=== PATIENT | female | born 1975 | race Caucasian/White ===

== ENCOUNTER 2017-09-15 17:25 | Emergency (ER) | payer SELFPAY ==
[~2017-09-15] VITALS: Ht 167.6 cm; Wt 99.8 kg
[2017-09-15 17:35] VITALS: BP_SYST 139
[2017-09-15] MEDS ORDERED: HYDROcodone/ACETAMIN 5-325 MG TAB (NORCO/ VICODIN) PO ONE (18:30)
[2017-09-15 19:18] VITALS: BP_SYST 141
== END 2017-09-15 19:18 | disposition home or self-care (01) ==
LOC: SED 17:25
DX: S66.912A Strain of unspecified muscle, fascia and tendon at wrist and hand level, left hand, initial encounter (principal); R03.0 Elevated blood-pressure reading, without diagnosis of hypertension; Z88.1 Allergy status to other antibiotic agents; Z90.710 Acquired absence of both cervix and uterus; W19.XXXA Unspecified fall, initial encounter; Y93.89 Activity, other specified; Y92.830 Public park as the place of occurrence of the external cause; Y99.8 Other external cause status
CPT/HCPCS: 99284

== ENCOUNTER 2019-02-16 19:58 | Emergency (ER) | payer SELFPAY ==
[~2019-02-16] VITALS: Ht 167.6 cm; Wt 104.3 kg
[2019-02-16 20:05] VITALS: BP_SYST 162
--- NOTE | 2019-02-16 20:05 | NUR ---
Placed in room 2. Placed on library monitor, blood pressure machine and pulse oximeter. To gown for exam. Side rails up.
--- NOTE | 2019-02-16 20:10 | NUR ---
ER Dr. Ceron at bedside examining patient.
--- NOTE | 2019-02-16 20:14 | NUR ---
Pt presents to ER with with c/o chest pain and right sided congestion and cough. Pt states she received bad news about her son approximately an hour ago and immediately got SOB, increased heart rate, dry mouth, and chest tightness. Pt states pain was located in left chest and radiated to left shoulder to left shoulder blade. Pt states pain in chest was 5/10. Pt states no nausea and vomiting were or are present. Upon assessment, Pt states she is not SOB, has no chest tightness or pain and HR is currently 91 beats per minute. Pt states right sided face congestion and cough presented around Thanksgiving. Pt describes "when I cough, I cough up like blood because it's pink." Upon assessment, Pt lungs sound bilaterally clear and no labored breathing noted. Will continue to monitor.
[2019-02-16] MEDS ORDERED: MELA10TA2 PO (20:18)
[2019-02-16] MEDS ORDERED: ASPIRIN 81 MG TAB.CHEW PO ONE (20:30)
[2019-02-16 20:35] LABS: BASOPHILS # (AUTO) 0.1 K/uL (0.0-0.2); BASOPHILS % (AUTO) 0.9 % (0.0-2.0); EOSINOPHILS # (AUTO) 0.2 K/uL (0.0-0.4); EOSINOPHILS % (AUTO) 2.8 % (0.0-4.0); HEMATOCRIT 38.1 % (36-48); HEMOGLOBIN 13.1 g/dL (12.0-16.0); LYMPHOCYTES # (AUTO) 1.5 K/uL (1.0-5.5); LYMPHOCYTES % (AUTO) 18.3 % (20.5-51.5); MEAN CORPUSCULAR HEMOGLOBIN 29 pg (27-31); MEAN CORPUSCULAR HGB CONC 34 % (32-36); MEAN CORPUSCULAR VOLUME 85 fL (79.0-98.0); MONOCYTES # (AUTO) 0.6 K/uL (0.0-1.0); MONOCYTES % (AUTO) 6.8 % (1.7-9.3); NEUTROPHILS % (AUTO) 71.2 % (40.0-70.0); PLATELET COUNT (AUTO) 292 K/uL (130-430); RED BLOOD CELL COUNT(AUTO) 4.49 MIL/uL (4.2-6.2); RED CELL DISTRIBUTION WIDTH 12.9 % (9.0-15.0); WHITE BLOOD COUNT (AUTO) 8.4 K/uL (4.8-10.8)
[2019-02-16 20:45] LABS: CALCIUM 8.1 mg/dL (8.4-11.0); CREATININE 0.73 mg/dL (0.55-1.30); POTASSIUM 3.1 mmol/L (3.5-5.1)
[2019-02-16 20:48] LABS: PROTHROMBIN TIME 9.9 SECS (9.5-12.5)
[2019-02-16 20:50] LABS: ALBUMIN 3.6 g/dL (3.4-4.8); TOTAL BILIRUBIN 0.2 mg/dL (0.0-1.0)
[2019-02-16] MEDS ORDERED: POTASSIUM CHLORIDE 20 MEQ TAB.PRT.SR PO ONE (21:30)
--- NOTE | 2019-02-16 21:58 | NUR ---
Pt requests to use restroom. Gave pt non slip socks and assisted patient to bathroom. Pt tolerated well.
--- NOTE | 2019-02-16 23:00 | NUR ---
Patient resting quietly. No acute distress noted. Vital signs within normal range. at bedside. Will continue to monitor.
[2019-02-16 23:55] VITALS: BP_SYST 151
--- NOTE | 2019-02-16 23:55 | NUR ---
Patient given written and verbal discharge instructions and verbalizes understanding. ER MD Ceron discussed with patient the results and treatment provided. Patient in stable condition. ID arm band removed. IV catheter removed intact and dressing applied, no active bleeding. Rx of potassium chloride given. Patient educated on pain management and to follow up with PMD. Pain Scale 0/10. Opportunity for questions provided and answered. Medication side effect fact sheet provided.
--- NOTE | 2019-02-17 01:19 | NUR ---
[facility] in [facility] - 02/17/19 at 0120 by [email or web address] [id number]
== END 2019-02-16 23:55 | disposition home or self-care (01) ==
LOC: SED 19:58
DX: E87.6 Hypokalemia (principal); R07.9 Chest pain, unspecified; J02.9 Acute pharyngitis, unspecified; Z88.1 Allergy status to other antibiotic agents
CPT/HCPCS: 36415; 71045; 80053; 83880; 84484; 85025; 85379; 85610-TC; 85730-TC; 86403; 87081; 93005; 99284